=== PATIENT | male | born 1950 | race Caucasian/White ===

== ENCOUNTER 2017-10-12 21:03 | Emergency (ER) | payer OTHER ==
[~2017-10-12 21:03] MED LIST: FLOMAX0.4 M1 PO; GLUCOSAMINE &1 EAC1; VERAPAMIL ER240 MG PO
[2017-10-12] MEDS ORDERED: SAW PALMETTO450 M1 PO (21:36)
[2017-10-12] MEDS ORDERED: RHODIOLA PO (21:38)
--- NOTE | 2017-10-12 22:15 | ED GI/GU/ABDOMINAL COMPLAINT ---
History of Present Illness General Chief Complaint: General Adult Stated Complaint: "URINARY RETENTION?" Source: patient, old records Exam Limitations: no limitations Vital Signs & Intake/Output Vital Signs & Intake/Output Vital Signs Date Time Temp Pulse Resp B/P B/P Pulse O2 O2 Flow FiO2 Mean Ox Delivery Rate 10/12 2246 98.3 71 16 119/58 96 Room Air 10/12 2151 Room Air 10/122 97.7 88 28 166/92 Allergies Coded Allergies: No Known Allergies (10/12/17) Reconcile Medications Gluc 2KCL/Chondr/Barb Hy/Hy AC (Glucosamine & Chondroitin Cap) 375 MG-300 MG-175 MG-2 MG CAPSULE JOINT HEALTH (Reported) [RHODIOLA] 2 CAP PO QAM SUPPLEMENT (Reported) Saw [address] Fruit (Saw [address]) 450 MG CAPSULE 1 CAP PO TID SUPPLEMENT ( Reported) Tamsulosin HCl (Flomax) 0.4 MG CAP.ER.24H 1 CAP PO DAILY BLADDER HEALTH ( Reported) Verapamil HCl (Verapamil ER) 240 MG CAP24H.PEL 1 CAP PO DAILY HIGH BLOOD PRESSURE (Reported) Triage Note: PER PT URINARY RETENTION HAD CATHETER LAST WEEK AND DR KAUR REMOVED CATHETER DID GREAT UNTIL TODAY UNABLE TO VOID X 2 HRS PACING IN TRIAGE Triage Nurses Notes Reviewed? yes Onset: Abrupt Duration: hour(s): (2-3), constant, continues in ED Timing: recent history Quality/Severity: fullness Severity Numbers: 8 Location: suprapubic Radiation: no radiation Activities at Onset: none Prior Abdominal Problems: similar symptoms Past Sexual History: Unobtainable at this time No Modifying Factors: none Modifying Factors: Worsens With: urinating. HPI: 66 year old male hx of bph presents for eval of urinary retention. Patient reports that symptoms started about 2 or 3 hours before presentation with an inability to urinate. He states that earlier today he was urinating without difficulty. Symptoms started suddenly. He had similar symptoms that occurred 1 week ago. He was seen here a Mcgee was placed and it was removed by Dr. Kaur on Sunday of this week. He was doing well until today. No chest pain shortness of breath or fevers. No back pain or abdominal pain. He does report an urge to urinate and severe fullness. (Moises Balderas) Past History Travel History Traveled to [place] past 21 day No Medical History Any Pertinent Medical History? see below for history Neurological: NONE EENT: NONE Cardiovascular: NONE Respiratory: NONE Gastrointestinal: NONE Hepatic: NONE Renal: bph Musculoskeletal: NONE Psychiatric: NONE Endocrine: NONE Blood Disorders: NONE Cancer(s): NONE Surgical History Surgical History: none Psychosocial History What is your primary language Uzbek Tobacco Use: Never used Family History Hx Contributory? No (Moises Balderas) Review of Systems Review of Systems Constitutional: Reports: no symptoms. EENTM: Reports: no symptoms. Respiratory: Reports: no symptoms. Cardiovascular: Reports: no symptoms. GI: Reports: no symptoms. Genitourinary: Reports: see HPI (retention ). Musculoskeletal: Reports: no symptoms. Skin: Reports: no symptoms. Neurological/Psychological: Reports: no symptoms. Hematologic/Endocrine: Reports: no symptoms. Immunologic/Allergic: Reports: no symptoms. All Other Systems: Reviewed and Negative (Moises Balderas) Physical Exam Physical Exam General Appearance: well developed/nourished, no apparent distress, alert, awake Head: atraumatic, normal appearance Eyes: Bilateral: normal appearance, PERRL, EOMI. Ears, Nose, Throat, Mouth: hearing grossly normal, moist mucous membrane Neck: normal inspection, supple, full range of motion Respiratory: normal breath sounds, chest non-tender, no respiratory distress, lungs clear Cardiovascular: regular rate/rhythm Gastrointestinal: normal bowel sounds, soft, non-tender, no organomegaly Back: normal inspection, normal range of motion Extremities: normal range of motion Neurologic/Psych: no motor/sensory deficits, awake, alert, oriented x 3, normal gait Skin: intact, normal color, warm/dry Core Measures ACS in differential dx? No Sepsis Present: No Sepsis Focused Exam Completed? No (Moises Balderas) Progress Differential Diagnosis: pyelonephritis, ureterolithiasis, urinary retention, urethritis, UTI/pyelo Plan of Care: Orders Procedure Date/time Status URINALYSIS 10/12 2129 Complete Mcgee, Insertion/Removal/Asses 10/12 2108 Active CULTURE,URINE 10/12 2108 Active Laboratory Tests 10/12/172129: Urine Color YEL, Urine Clarity CLEAR, Urine pH 6.0, Ur Specific Wesley <= 1.005 , Urine Protein NEG, Urine Ketones NEG, Urine Nitrite NEG, Urine Bilirubin NEG, Urine Urobilinogen 0.2, Ur Leukocyte Esterase NEG, Ur Microscopic SEDIMENT EXAMINED, Urine RBC RARE, Urine Bacteria MOD H, Urine Hemoglobin LARGE H, Urine Glucose NEG 10/12/172108: Urine Color Cancelled, Urine Clarity Cancelled, Urine pH Cancelled, Ur Specific Wesley Cancelled, Urine Protein Cancelled, Urine Ketones Cancelled, Urine Nitrite Cancelled, Urine Bilirubin Cancelled, Urine Urobilinogen Cancelled, Ur Leukocyte Esterase Cancelled, Ur Microscopic Cancelled, Urine Hemoglobin Cancelled, Urine Glucose Cancelled Microbiology 10/12 2129 URINE ROUT: Urine Culture - RECD Patient was bladder scanned on arrival and his bladder had more than 1000 mL. A Mcgee was placed that drained out over a liter. Patient reports feeling much better. Urine is not showing any signs of infection. Since symptoms only started 2 or 3 hours ago very low suspicion for nephropathy. Patient will be discharged with a Mcgee in place with instructions to follow-up with his urologist on Sunday. Patient hard he has an appointment scheduled for Sunday. Discussed return precautions in detail. Patient is nontoxic-appearing and agrees with the plan. Initial ED EKG: none (Moises Balderas) Departure Departure Disposition: HOME OR SELF CARE Condition: Stable Clinical Impression Primary Impression: Urine retention Referrals: Vincent TAVAREZ,Andrew Nava MD,Derik Taylor (PCP/Family) Additional Instructions: Follow-up with ear urologist on Sunday as scheduled. Monitor your symptoms return with any concerns. Departure Forms: Customer Survey General Discharge Information (Moises Balderas) PA/AIRCRAFT SERVICER Co-Sign Statement Statement: ED Attending supervision documentation- [x] I saw and evaluated the patient. I have also reviewed all the pertinent lab results and diagnostic results. I agree with the findings and the plan of care as documented in the PA's/AIRCRAFT SERVICER's documentation. pt well appearing in ED... had his mcgee removed earlier this week...now represents with same... drained 1 liter of clear urine. pt safe for discharge, with close follwo up advised. [] I have reviewed the ED Record and agree with the PA's/AIRCRAFT SERVICER's documentation. [] Additions or exceptions (if any) to the PAs/AIRCRAFT SERVICER's note and plan are summarized below: [] (Kam TAVAREZ,Ronnie Shi)
[2017-10-12 22:46] VITALS: BP 119/58
== END 2017-10-12 22:44 ==
LOC: ERH 21:03
DX: N40.1 Benign prostatic hyperplasia with lower urinary tract symptoms (principal); R33.9 Retention of urine, unspecified
CPT/HCPCS: 81001; 87086

== ENCOUNTER 2017-11-08 04:38 | Inpatient (IN) | payer OTHER ==
[~2017-11-08] VITALS: Ht 172.7 cm; Wt 87.1 kg
[~2017-11-08 04:38] MED LIST changes: +BACTRIM DS TAB1 EACH PO; -GLUCOSAMINE &1 EAC1; +GLUCOSAMINE &1 EAC1 PO; +RHODIOLA PO; +SAW PALMETTO450 M1 PO
--- NOTE | 2017-11-08 10:57 | History & Physical ---
Trung Lunsford 11/08/17 1053: General Information and HPI MD Statement: I have seen and personally examined DERIK TELLO and documented this H&P. The patient is a 66 year old M who developed post procedural atrial fibrillation. Source of Information: patient, PACU records Exam Limitations: no limitations History of Present Illness: Mr. Tello is a 66-year-old gentleman with past medical history of hypertension, history of SVTs in his 30s, BPH who presented to [facility] for a urolift procedure for his long-standing BPH. Patient had a successful procedure but during the procedure developed atrial fibrillation. Patient carries no history of atrial fibrillation. Patient did have episodes of SVTs in his 30s which were initially managed by beta-blockade. The beta blockers were stopped at some point of time due to decreased frequency of symptoms per the patient. To be noted, patient is on verapamil for the management of his hypertension-as stated by the patient. During the interview, patient denies any chest pain, palpitations or any difficulty breathing. He did note "heartburn" earlier which he described as discomfort in the epigastric/substernal region, nonradiating, which he states is much improved now. He did have some recent upper respiratory symptoms/sore throat which have now resolved. He denies any lightheadedness or dizziness. No history of thyroid disease. Nonsmoker, no alcohol use and no drug use. Strong family history of SVT with A. fib and mitral valve repair ( father). Other systems reviewed and negative, exceptions above. Allergies/Medications Allergies: Coded Allergies: No Known Allergies (11/06/17) Home Med list Gluc 2KCL/Chondr/Barb Hy/Hy AC (Glucosamine & Chondroitin Cap) (Unknown Strength ) CAPSULE 1 CAP PO DAILY SUPPLEMENT (Reported) [RHODIOLA] 2 CAP PO QAM SUPPLEMENT (Reported) Saw [place] Fruit (Saw [place]) 450 MG CAPSULE 1 CAP PO TID SUPPLEMENT ( Reported) Sulfamethoxazole/Trimethoprim (Bactrim Ds Tablet) 800 MG-160 MG TABLET 1 TAB PO BID URINE Tamsulosin HCl (Flomax) 0.4 MG CAP.ER.24H 1 CAP PO DAILY BLADDER HEALTH ( Reported) Verapamil HCl (Verapamil ER) 240 MG CAP24H.PEL 1 CAP PO DAILY HIGH BLOOD PRESSURE (Reported) Past History Medical History Neurological: NONE EENT: NONE Cardiovascular: hypertension Respiratory: NONE Gastrointestinal: NONE Hepatic: NONE Renal: bph Musculoskeletal: NONE Psychiatric: NONE Endocrine: NONE Blood Disorders: NONE Cancer(s): NONE Surgical History Surgical History: none Past Family/Social History Family History Relations & Conditions if any FATHER FH: atrial fibrillation FHx: SVT (supraventricular tachycardia) Review of Systems Review of Systems Constitutional: Reports: see HPI. Exam & Diagnostic Data Last 24 Hrs of Vital Signs/I&O Vital Signs Date Time Temp Pulse Resp B/P B/P Pulse O2 O2 Flow FiO2 Mean Ox Delivery Rate 11/08 1136 98.0 108 18 122/78 98 Room Air Intake & Output 11/08 1600 11/08 0800 02 0000 Intake Total Output Total Balance Patient 192 lb Weight Weight Standing Scale Measurement Method Physical Exam General Appearance Alert, Oriented X3, Cooperative HEENT Atraumatic, PERRLA, EOMI, mucous membranes dry. Neck Supple, No JVD, No thryomegaly, +2 Carotid Pulse wo Bruit, No LAD Cardiovascular Normal S1, Normal S2, irregularly irregular Lungs Clear to Auscultation, Normal Air Movement Abdomen Normal Bowel Sounds, Soft, No Tenderness Neurological Normal Gait, Normal Speech Extremities No Clubbing, No Cyanosis, trace edema bilateral. Last 24 Hrs of Labs/Fish: Laboratory Tests 11/08/17 1050: Troponin I Cancelled Diagnostic Data EKG Results Atrial fibrillation, rate 102. Right bundle branch block. No previous tracing available to compare. Assessment/Plan Assessment: 66-year-old gentleman with long-standing history of paroxysmal SVT, hypertension on verapamil with new onset atrial fibrillation post urologic procedure for BPH. Patient to be monitored in telemetry for new-onset A. fib. Currently rate controlled , Will restart home dose of verapamil. Echocardiogram. Serial troponins and EKGs to rule out ischemic event. Ordered CBC, BEP and TSH are. May need electrical cardioversion if no spontaneous reversal to sinus rhythm. Will begin IV heparin per protocol. Cleared by surgery. BPH status post UROLIFT implant placement. Restart Proscar 5 mg daily x 30 days. Irrigate Fragoso q2-4hrs with 50 cc sterile water PRN hematuria/clot. Full code. Heart healthy diet. IV heparin-antibiotic ventilation and DVT prophylaxis. As Ranked By This Provider Problem List: 1. New onset atrial fibrillation Core Measures/Misc (06/17) Acute Coronary Syndrome ACS Diagnosis: No Congestive Heart Failure Congestive Heart Failure Diagnosis No Cerebrovascular Accident CVA/TIA Diagnosis: No VTE (View Protocol) VTE Risk Factors Age>40 No Mechanical VTE Prophylaxis d/t N/A MechProphylax Ordered No VTE Pharm Prophylaxis d/t NA PharmProphylax ordered Sepsis (View protocol) Sepsis Present: No Derik Riojas MD 11/08/17 1131: Attending MD Review Statement Attending Statement Attending MD Statement: examined this patient, discuss w/resident/PA/OCCUPATIONAL THERAPY SUPERVISOR, agreed w/resident/PA/OCCUPATIONAL THERAPY SUPERVISOR, discussed with family, reviewed EMR data (avail), discussed with nursing, reviewed images, amended to note Attending Assessment/Plan: The patient is a 66-year-old male with history of hypertension, and remote history of paroxysmal SVT. He was previously treated with beta abram for the SVT. He has recently been on verapamil, and he has not had any recent recurrences of the SVT. He underwent a your left procedure today for BPH, and he was noted to develop atrial fibrillation, which is a new finding for him. He is not aware of any prior history of atrial fibrillation. He noted recent mild epigastric discomfort which he describes as a strange feeling with no radiation, which resolved after a few minutes. No palpitations. No syncope. No lightheadedness or dizziness. No nausea or vomiting. He notes that he did not take his verapamil prior to the procedure. Review of systems: No fever. No chills. No rash. No tremor. No melena. All other systems were reviewed, and were noted to be negative. Physical examination: Gen: The patient is in no acute distress HEENT: Normal nose, ears, and oropharynx. Pupils equal bilaterally. Conjunctiva normal. Neck: Supple with no JVD, no masses, and no thyromegaly Lungs: Clear to auscultation with normal respiratory effort Heart: Irregularly irregular, S1, S2, no murmurs. No peripheral edema, 2+ pulses in the lower extremities bilaterally Abdomen: Soft, nontender, no masses. No hepatomegaly. No splenomegaly Extremities: No clubbing or cyanosis. Normal muscle strength in the upper and lower extremities Skin: Normal skin turgor with no skin ulcers or lesions noted. Neuro: Cranial nerves intact. Sensation intact Psych: Alert and oriented - 3 with appropriate affect EKG tracings independently reviewed, and reveals atrial fibrillation with ventricular response of 102, right bundle branch block Assessment: 1. Prior history of atrial fibrillation with no recent recurrence 2. Hypertension 3. New onset atrial fibrillation status post surgery Recommendations: * Restart his usual dose of verapamil 240 mg daily for control of ventricular rate and hypertension * If he has significant elevation of ventricular rate, then 1 or more individual doses of IV metoprolol could be given * Monitor on telemetry * Echocardiogram * Check serial troponin * Check basic metabolic profile, CBC, magnesium, and TSH * Start IV heparin per protocol if cleared by surgery. This will be changed to Eliquis or other oral anticoagulant prior to discharge * Will consider possible cardioversion, either as an inpatient or as an outpatient if he does not spontaneously return to sinus rhythm
--- NOTE | 2017-11-08 11:22 | Operative Report ---
Operative/Inv Procedure Report Surgery Date: 11/08/17 Name of Procedure: Cystoscopy. UROLIFT implant placement (X6) Pre-Operative Diagnosis: BPH. Urinary retention. Post-Operative Diagnosis: Same Estimated Blood Loss: scant Surgeon/Dispatch Manager: Andrew Kaur MD Anesthesia: laryngeal mask airway Drains: 20 [place] Fragoso catheter. Specimens: None Complications: None Operative/Procedure Note Note: The patient was taken to the operating room and placed on the OR table in supine position. Timeout was performed, with the patient awake, in order to confirm correct identity, procedure, antibiotics, anesthesia, and other pertinent perioperative information. After adequate anesthesia and antibiotics, the patient was then placed lithotomy stirrups, draped and prepped in the usual surgical fashion, after removing the indwelling Fragoso catheter. A 20 [place] cystoscope was inserted into the bladder without significant difficulty, noting the bilateral obstructing lobes of the prostate, with small middle lobe. The cystoscope bridge was replaced with ureter left the U device. The first treatment site was the patient's left side approximately 1.5 cm distal to the bladder neck. The distal tip of the delivery device was then angled laterally, approximately 20 at this position to compress the lateral lobe. The trigger was pulled, thereby deploying a needle containing the implant through the prostate. The needle was then retracted, allowing one end of the implant to be delivered to the capsule surface of the prostate. The implant was then tensioned to assure capsular sealing and removal of slack monofilament. The device was then angled back toward midline and slowly advanced proximally until cystoscopic verification of the monofilament being centered in the delivery bay. The urethral end piece was then affixed to the monofilament, thereby tailoring the size of the implant. Excess filament was then severed. The delivery device was then readvanced into the bladder. The delivery device was then replaced with cystoscope, and bridge, and implant location and opening effect was confirmed cystoscopically. The same procedure was then repeated on the right side, just distal to the right bladder neck. And 2 additional implants were delivered just proximal to the vera montanum, again one on the right, and one in the left side of the prostate following the similar technique. Cystoscopy then revealed a persistent area of obstruction, and 2 more implants were delivered in the mid prostate;(one on the right lateral lobe, and 1 on the left lateral robe) . A total of 6 implants were placed in the patient's prostate in order to perform an open prostate channel. A final cystoscopy was conducted to inspect the location, and stability of each implant, and second to confirm the presence of a continuous anterior channel present through the prostatic urethra with irrigation flow turned off. The bladder was then filled with 150 mL of irrigation fluid, and the cystoscope was removed. A 20 [place] Fragoso was inserted without difficulty, draining clear fluid. patient tolerated procedure well All sponge needle and instrument count were correct at the end of the case. The patient tolerated the procedure well, and taken to the recovery room in satisfactory condition. Findings: Patient with intraoperative rapid atrial fibrillation. EKG obtained in the recovery room, and cardiology contacted for evaluation. Discharge Disposition: PACU Additional Comments: Patient to remain on antibiotics, pain medication, and anticoagulation as per cardiology. CC: Andrew Kaur MD
[2017-11-08 11:36] VITALS: BP 122/78
[2017-11-08 13:17] LABS: ABSOLUTE BASOPHIL COUNT 0 /CUMM (0.0-0.2); ABSOLUTE EOSINOPHIL COUNT 0.1 /CUMM (0.0-0.7); ABSOLUTE GRANULOCYTE CT 8.3 /CUMM (1.4-6.5); ABSOLUTE LYMPH COUNT 1.6 /CUMM (1.2-3.4); ABSOLUTE MONOCYTE COUNT 0.6 /CUMM (0.10-0.60); BASOPHIL % 0.4 % (0.0-2.0); EOSINOPHIL % 1.4 % (0-5); GRANULOCYTE % 77.6 % (42.2-75.2); HEMATOCRIT 42.2 % (42-52); MEAN CORPUSCULAR HGB 27.3 PG (27.0-31.0); MEAN CORPUSCULAR HGB CONC 32.4 G/DL (33.0-37.0); MEAN CORPUSCULAR VOLUME 84.2 FL (80.0-94.0); MEAN PLATELET VOLUME 7.1 FL (7.4-10.4); PLATELET COUNT 343 /CUMM (130-400); RBC DISTRIBUTION WIDTH 13.3 % (11.5-14.5); RED BLOOD CELL CT 5.01 /CUMM (4.70-6.10); WHITE BLOOD CELL COUNT 10.8 /CUMM (4.8-10.8)
[2017-11-08 14:39] VITALS: BP 120/70
[2017-11-08 19:24] LABS: PTT 49 SEC (25-37)
[2017-11-08 22:14] VITALS: BP 124/70
[2017-11-09 02:59] LABS: PTT 80 SEC (25-37)
[2017-11-09 05:59] VITALS: BP 152/82
--- NOTE | 2017-11-09 07:30 | PN- Housestaff ---
Subjective Follow-up For: Intraoperative atrial fibrillation BPH status post cystoscopy and urolift implant placement Tele-Events Since Last Visit: Sinus bradycardia to Normal sinus rhythm with heart rate between 47 and 65 Subjective: Patient was seen and examined today. Patient denies any surgical pain at this time. Complains of increased bladder spasms and the feeling the constant urge to urinate. Patient denies any fever, chills, shortness breath, chest pain, nausea/vomiting, constipation/diarrhea. The patient's mcgee is in place and has blood-tinged urine. He. No acute events overnight. Review of Systems Constitutional: Reports: no symptoms. Cardiovascular: Reports: no symptoms. Respiratory: Reports: no symptoms. Gastrointestinal: Reports: no symptoms. Genitourinary: Reports: see HPI, hematuria, urgency. Musculoskeletal: Reports: no symptoms. Neurological/Psychological: Reports: see HPI. Objective Last 24 Hrs of Vital Signs/I&O Vital Signs Date Time Temp Pulse Resp B/P B/P Pulse O2 O2 Flow FiO2 Mean Ox Delivery Rate 11/09 0759 72 152/82 11/09 0559 98.7 55 20 152/82 92 11/08 2214 99.1 64 18 124/70 90 11/08 2138 99.1 11/08 1439 98.8 71 20 120/70 96 Room Air Intake & Output 11/09 1600 11/09 0800 11/09 0000 Intake Total 188.2 200 Output Total 1600 900 Balance -1411.8 -700 Intake, IV 88.2 Intake, Oral 100 200 Output, Urine 1600 900 Physical Exam General Appearance: Alert, Oriented X3, Cooperative, No Acute Distress Skin: No Rashes, No Breakdown, No Significant Lesion HEENT: Atraumatic, PERRLA, EOMI, Mucous Membr. moist/pink Cardiovascular: Regular Rate, Normal S1, Normal S2, No Murmurs Lungs: Clear to Auscultation, Normal Air Movement Abdomen: Normal Bowel Sounds, Soft, No Tenderness Extremities: No Clubbing, No Cyanosis, No Edema, Normal Pulses, No Tenderness/ Swelling Vascular: Normal Pulses, Pulses Symmetrical Other Physical Findings: Mcgee in place with gross hematuria in Mcgee bag. Current Medications: Current Medications Sig/Aisha Start time Last Medication Dose Route Stop Time Status Admin Acetaminophen 650 MG Q6P PRN 11/08 1045 DCD 11/08 PO 2138 Ciprofloxacin 500 MG ONCE ONE 11/09 1200 DC 11/09 PO 11/09 1201 1228 Ciprofloxacin 500 MG ONCE 11/08 0000 DC PO 11/08 2359 Finasteride 5 MG DAILY 11/08 1109 DCD 11/09 PO 0759 Heparin Sodium 3,500 UNIT ONCE ONE 11/09 0600 DC 11/08 (Porcine) IV 11/09 0601 2000 Heparin Sodium 5,000 UNIT .STK-MED ONE 11/08 1954 DC (Porcine) IV 11/08 195 Heparin Sodium/ 25,000 UNIT Q24H 11/08 1200 DC 11/09 Dextrose IV 0650 Dextrose/Water 500 ML Ibuprofen 600 MG Q6P PRN 11/08 1045 DCD PO Tamsulosin HCl 0.4 MG DAILY 11/09 1030 DCD PO Verapamil HCl 240 MG DAILY 11/08 1147 DCD 11/09 PO 0759 Last 24 Hrs of Lab/Fish Results Last 24 Hrs of Labs/Mics: Laboratory Tests 11/09/17 0715: Anion Gap 10, Estimated GFR > 60, BUN/Creatinine Ratio 20.0, CBC w Diff NO MAN DIFF REQ, RBC 4.98, MCV 83.6, MCH 27.2, MCHC 32.6 L, RDW 13.4, MPV 7.1 L, Gran % 71.0, Lymphocytes % 19.3 L, Monocytes % 6.6, Eosinophils % 2.6, Basophils % 0.5, Absolute Granulocytes 7.3 H, Absolute Lymphocytes 2.0, Absolute Monocytes 0.7 H, Absolute Eosinophils 0.3, Absolute Basophils 0 11/09/17 0150: Troponin I < 0.01, APTT 80 H 11/08/17 1758: Troponin I < 0.01, APTT 49 H Orders ECHO Findings: CONCLUSIONS 1. minimal to mild aortic sclerosis is present. The valve is trileaflet. There is no valvular stenosis or insufficiency. 2. Mitral leaflet thickening is present with minimal mitral insufficiency and mild left atrial enlargement. 3. There is no significant pericardial fluid present. 4. The left ventricular chamber size and systolic function are normal with no resting wall motion abnormalities. 5. Minimal tricuspid and pulmonic insufficiency are present. There is no evidence of pulmonary hypertension. 6. No prior study was available for comparison. Lines/Diet/Fluids Catheters/Tubes: mcgee Mcgee Still Needed? Yes Assessment/Plan Assessment: Patient is a 66-year-old male with past medical history of SVTs in his 30s, hypertension, BPH who initially presented to [facility] for uro-lift procedure. During the procedure patient was noted to have atrial fibrillation. EKG showed atrial fibrillation with ventricular rate of 102 and right bundle branch block Patient was admitted to the telemetry floor and placed on IV heparin and his verapamil 240 mg (home medication for hypertension) was resumed for rate control. After being transferred patient spontaneously converted back into normal sinus rhythm and has remained in normal sinus rhythm overnight. Patient's troponins remained negative. Patient continued to have gross hematuria overnight. 1. New onset atrial fibrillation - Patient converted back to NSR. Patient initially on IV heparin however discontinued at the discretion of patient's urologist and metrology engineer as patient continued to have gross hematuria. -TSH within normal limits -H&H stable - Patient's ECHO showed normal left ventricular ejection fraction estimated at 60-65%. -Per cardiology patient will require anticoagulation with Eliquis 5 mg twice daily however this will be started after the patient has seen Dr. Kaur on 11/12. -Patient is to follow-up with cardiology within 1 week of discharge 2. BPH status post cystoscopy and uro-lift procedure on 11/08/2017, postop day #1 -Patient has a Mcgee in place which is currently draining gross hematuria -Continue irrigating q2 to q4 hours -Continue finasteride daily -Flomax given today for increased bladder spasms. Patient can continue his Flomax at home. -Patient started on antibiotics, ciprofloxacin 500 mg daily for 10 days -Patient is to follow-up with Dr. Kaur on 11/12/[address] post discharge. DVT prophylaxis: IV heparin, ALPs Diet: Heart healthy Code: Full code Problem List: 1. New onset atrial fibrillation 2. Gross hematuria 3. BPH (benign prostatic hyperplasia) Pain Ratin Pain Location: surgical site Pain Goal: Remain pain free Pain Plan: tylenol PRN Tomorrow's Labs & Rationales: none - discharge home today
--- NOTE | 2017-11-09 07:38 | ECHOCARDIOGRAM REPORT ---
NATHANIEL TELLO Age: 66 : 1950 Gender: M Exam Date: 11/08/2017 16:45 Exam Location: 1 [address] Ht (in): 68 Wt (lb): 192 BSA: 2.07 BP: 129 / 79 Ordering Physician: Trung Lunsford MD Referring Physician: Juanpablo Wright MD Technologist: Zoie Oliva [facility] Room Number: [id number] Indications: AFIB/FLUTTER Rhythm: Sinus Technical Quality: Fair FINDINGS Left Ventricle Normal size left ventricle. No obvious regional wall motion abnormalities. Normal left ventricular ejection fraction estimated at 60-65%. Right Ventricle Normal right ventricular size and function. Right Atrium Normal right atrial size. Left Atrium Mild left atrial dilatation. Mitral Valve Mitral valve thickened. Trace mitral regurgitation. Aortic Valve Trileaflet aortic valve. Focal thickening of the aortic valve cusps. No aortic stenosis. No aortic regurgitation. Tricuspid Valve Tricuspid valve not well visualized, grossly normal. Trace tricuspid regurgitation. Right ventricular systolic pressure estimated at 24 mmHg. Pulmonic Valve Structurally normal pulmonic valve. Trace pulmonic regurgitation. Pericardium No pericardial effusion. Great Vessels Normal size aortic root and proximal ascending aorta. CONCLUSIONS 1. minimal to mild aortic sclerosis is present. The valve is trileaflet. There is no valvular stenosis or insufficiency. 2. Mitral leaflet thickening is present with minimal mitral insufficiency and mild left atrial enlargement. 3. There is no significant pericardial fluid present. 4. The left ventricular chamber size and systolic function are normal with no resting wall motion abnormalities. 5. Minimal tricuspid and pulmonic insufficiency are present. There is no evidence of pulmonary hypertension. 6. No prior study was available for comparison. Juanpablo Wright M.D. (Electronically Signed) Final Date: 09 November 2017 07:37 MEASUREMENTS (Male / Female) Normal Values 2D ECHO LV Diastolic Diameter PLAX 4.8 cm 4.2 - 5.9 / 3.9 - 5.3 cm LV Systolic Diameter PLAX 3.1 cm 2.1 - 4.0 cm LV Fractional Shortening PLAX 35.4 % 25 - 46 % LV Ejection Fraction 2D Teich 64.7 % IVS Diastolic Thickness 1.0 cm LVPW Diastolic Thickness 1.1 cm LV Relative Wall Thickness 0.4 RV Internal Dim ED PLAX 2.7 cm 1.9 - 3.8 cm LVOT Diameter 2.3 cm Aortic Root Diameter 3.4 cm LA Systolic Diameter LX 4.3 cm 3.0 - 4.0 / 2.7 - 3.8 cm LA Volume 46.0 cm 18 - 58 / 22 - 52 cm Ascending Aorta Diameter 3.2 cm DOPPLER AV Peak Velocity 119.0 cm/s AV Peak Gradient 5.7 mmHg AV Mean Velocity 87.5 cm/s AV Mean Gradient 3.0 mmHg AV Velocity Time Integral 28.6 cm LVOT Peak Velocity 102.0 cm/s LVOT Peak Gradient 4.2 mmHg LVOT Mean Velocity 67.0 cm/s LVOT Mean Gradient 2.0 mmHg LVOT Velocity Time Integral 21.0 cm LVOT Stroke Volume 87.2 cm AV Area Cont Eq vti 3.1 cm AV Area Cont Eq pk 3.6 cm MV Peak Velocity 81.3 cm/s MV Peak Gradient 2.6 mmHg MV Mean Velocity 47.2 cm/s MV Mean Gradient 1.0 mmHg Mitral E Point Velocity 47.9 cm/s Mitral A Point Velocity 48.4 cm/s Mitral E to A Ratio 1.0 MV PHT Velocity 65.2 cm/s MV Deceleration Carter 155.0 cm/s MV Pressure Half Time 126.2 ms MV Area PHT 1.7 cm MV Deceleration Time 370.0 ms TR Peak Velocity 215.0 cm/s TR Peak Gradient 18.5 mmHg Right Atrial Pressure 5.0 mmHg Pulmonary Artery Systolic Pressu 23.5 mmHg Right Ventricular Systolic Press 23.5 mmHg PV Peak Velocity 130.0 cm/s PV Peak Gradient 6.8 mmHg PV Mean Velocity 78.1 cm/s PV Mean Gradient 3.0 mmHg PV Velocity Time Integral 25.4 cm LV E' Lateral Velocity 10.3 cm/s Mitral E to LV E' Lateral Ratio 4.7 LV E' Septal Velocity 6.9 cm/s Mitral E to LV E' Septal Ratio 6.9
[2017-11-09 07:59] VITALS: BP 152/82
[2017-11-09 08:11] LABS: ABSOLUTE BASOPHIL COUNT 0 /CUMM (0.0-0.2); ABSOLUTE EOSINOPHIL COUNT 0.3 /CUMM (0.0-0.7); ABSOLUTE GRANULOCYTE CT 7.3 /CUMM (1.4-6.5); ABSOLUTE MONOCYTE COUNT 0.7 /CUMM (0.10-0.60); BASOPHIL % 0.5 % (0.0-2.0); EOSINOPHIL % 2.6 % (0-5); HEMATOCRIT 41.6 % (42-52); MEAN CORPUSCULAR HGB 27.2 PG (27.0-31.0); MEAN CORPUSCULAR HGB CONC 32.6 G/DL (33.0-37.0); MEAN CORPUSCULAR VOLUME 83.6 FL (80.0-94.0); MEAN PLATELET VOLUME 7.1 FL (7.4-10.4); PLATELET COUNT 330 /CUMM (130-400); RBC DISTRIBUTION WIDTH 13.4 % (11.5-14.5); RED BLOOD CELL CT 4.98 /CUMM (4.70-6.10); WHITE BLOOD CELL COUNT 10.3 /CUMM (4.8-10.8)
--- NOTE | 2017-11-09 08:18 | PN- Cardiology ---
Subjective Subjective: Feeling well. No chest pain. No palpitations. No diaphoresis. He is having gross hematuria. He converted to sinus rhythm and was in sinus rhythm overnight without significant arrhythmias. Objective Vital Signs and I&Os Vital Signs Date Time Temp Pulse Resp B/P B/P Pulse O2 O2 Flow FiO2 Mean Ox Delivery Rate 11/099 72 152/82 11/09 0559 98.7 55 20 152/82 92 11/08 2214 99.1 64 18 124/70 90 11/08 2138 99.1 11/08 1439 98.8 71 20 120/70 96 Room Air 11/08 1258 108 122/78 11/08 1136 98.0 108 18 122/78 98 Room Air Intake & Output 11/09 1600 11/09 0811/09 0000 11/08 1600 11/08 0000 Intake Total 188.2 200 556 Output Total 1600 900 250 Balance -1411.8 -700 306 Intake, IV 88.2 56 Intake, Oral 100 200 500 Output, Urine 1600 900 250 Patient 192 lb Weight Weight Standing Scale Measurement Method Physical Exam: Gen: The patient is in no acute distress HEENT: Normal nose, ears, and oropharynx. Pupils equal bilaterally. Conjunctiva normal. Neck: Supple with no JVD, no masses, and no thyromegaly Lungs: Clear to auscultation with normal respiratory effort Heart: Irregularly irregular, S1, S2, no murmurs. No peripheral edema, 2+ pulses in the lower extremities bilaterally Abdomen: Soft, nontender, no masses. No hepatomegaly. No splenomegaly Extremities: No clubbing or cyanosis. Normal muscle strength in the upper and lower extremities Skin: Normal skin turgor with no skin ulcers or lesions noted. Neuro: Cranial nerves intact. Sensation intact Current Medications: Current Medications Sig/Aisha Start time Last Medication Dose Route Stop Time Status Admin Acetaminophen 650 MG Q6P PRN 11/08 1045 AC 11/08 PO 2138 Ciprofloxacin 500 MG ONCE 11/08 0000 DC PO 11/08 2359 Enoxaparin Sodium 40 MG DAILY 11/09 1000 CAN SC Finasteride 5 MG DAILY 11/08 1109 AC 11/09 PO 0759 Heparin Sodium 3,500 UNIT ONCE ONE 11/09 599 DC 11/08 (Porcine) IV 11/09 Heparin Sodium 5,000 UNIT .STK-MED ONE 11/08 1954 DC (Porcine) IV 11/08 1955 Heparin Sodium/ 25,000 UNIT Q24H 11/08 1200 AC 11/09 Dextrose IV 0650 Dextrose/Water 500 ML Hydromorphone HCl 2 MG .STK-MED ONE 11/08 0845 DC IM 11/08 0846 Ibuprofen 600 MG Q6P PRN 11/08 1045 AC PO Verapamil HCl 240 MG DAILY 11/08 1147 AC 11/09 PO 0759 Results Last 48 Hrs of Labs/Mics: Laboratory Tests 11/09/17 0715: Sodium Pending, Potassium Pending, Chloride Pending, Carbon Dioxide Pending, Anion Gap Pending, BUN Pending, Creatinine Pending, BUN/Creatinine Ratio Pending , CBC w Diff Pending, WBC Pending, RBC Pending, Hgb Pending, Hct Pending, MCV Pending, MCH Pending, MCHC Pending, RDW Pending, Plt Count Pending, MPV Pending 11/09/17 0150: Troponin I < 0.01, APTT 80 H 11/08/17 1758: Troponin I < 0.01, APTT 49 H 11/08/17 1205: Magnesium Cancelled 11/08/17 1205: Anion Gap 11, Estimated GFR > 60, BUN/Creatinine Ratio 20.0, Magnesium 1.7, Troponin I < 0.01, TSH 2.270, CBC w Diff NO MAN DIFF REQ, RBC 5.01, MCV 84.2, MCH 27.3, MCHC 32.4 L, RDW 13.3, MPV 7.1 L, Gran % 77.6 H, Lymphocytes % 14.6 L, Monocytes % 6.0, Eosinophils % 1.4, Basophils % 0.4, Absolute Granulocytes 8.3 H, Absolute Lymphocytes 1.6, Absolute Monocytes 0.6, Absolute Eosinophils 0.1, Absolute Basophils 0 11/08/17 1050: Troponin I Cancelled Recent Imaging Studies: Echocardiogram 11/09/17: 1. minimal to mild aortic sclerosis is present. The valve is trileaflet. There is no valvular stenosis or insufficiency. 2. Mitral leaflet thickening is present with minimal mitral insufficiency and mild left atrial enlargement. 3. There is no significant pericardial fluid present. 4. The left ventricular chamber size and systolic function are normal with no resting wall motion abnormalities. 5. Minimal tricuspid and pulmonic insufficiency are present. There is no evidence of pulmonary hypertension. 6. No prior study was available for comparison. Assessment/Plan Assessment/Plan Assessment: 1. Hypertension 2. History of paroxysmal SVT 3. Status post uro-lift procedure with postoperative hematuria 4. Paroxysmal atrial fibrillation, converted to sinus rhythm Plan: * Discharge to home today if cleared by urology * Long-term anticoagulation is indicated for stroke prevention given evidence of paroxysmal atrial fibrillation, however given gross hematuria, anticoagulation can be temporarily held. I discussed with Dr. Kaur, and he recommends holding anticoagulation for 3 days per * Discontinue IV heparin * Start Eliquis 5 mg p.o. twice daily in 3 days. * Follow up in 1 week * Please discharge patient with card for initial 30 days free of Eliquis to allow time for prior authorization if needed by his insurance Continue telemetry? Yes
[2017-11-09] MEDS ORDERED: FINASTERIDE5 M1 PO ×2 (09:32→11:39)
--- NOTE | 2017-11-09 09:38 | Patient Discharge Instructions ---
Discharge Instructions General Discharge Information You were seen/treated for: BPH Atrial Fibrillaton You had these procedures: Prostate Urolift Watch for these problems: Increased bleeding, pain, discharge from site of surgery, fever, chills, palpitations, chest pain, shortness of breath, swelling in legs Special Instructions: 1. Please follow up with your pcp within 1 week of discharge 2. Please follow up with Dr. Riojas within 1 week of discharge 3. Please follow up with Dr. Kaur within 1 week of discharge 4. Please follow instructions as directed per Dr. Kaur 5. Please start taking Eliquis 5mg twice a day on Sunday, 11/12 after you see your urologist. 6. Please take your antibiotic (ciprofloxacin 500mg daily) as prescribed. 6. If you have any worsening symptoms as described above please call your physician or come to the ED. Diet Continue normal diet: Yes Activity Full Activity/No Limits: No Activity Self Limited: Yes Acute Coronary Syndrome Inclusion Criteria At DC or during hospital stay patient has or had the following: ACS DIAGNOSIS No Discharge Core Measures Meds if any: Prescribed or Continued at Discharge Meds if any: NOT Prescribed or Continued at Discharge Congestive Heart Failure Inclusion Criteria At DC or during hospital stay patient has or had the following: CHF DIAGNOSIS No Discharge Core Measures Meds if any: Prescribed or Continued at Discharge Meds if any: NOT Prescribed or Continued at Discharge Cerebrovascular accident Inclusion Criteria At DC or during hospital stay patient has or had the following: CVA/TIA Diagnosis No Discharge Core Measures Meds if any: Prescribed or Continued at Discharge Meds if any: NOT Prescribed or Continued at Discharge Venous thromboembolism Inclusion Criteria VTE Diagnosis No VTE Type NONE VTE Confirmed by (Test) NONE Discharge Core Measures - Per Current guidelines, there needs to be overlap - treatment for the first 5 days of Warfarin therapy. - If discharged on Warfarin prior to 5 days of - overlap therapy, the patient will need to be - assessed for post discharge needs including - *Post discharge parental anticoagulation - *Warfarin and/or parental anticoagulation education - *Follow up date to check INR post discharge At least 5 days overlap therapy as Inpatient No Meds if any: Prescribed or Continued at Discharge Note: Overlap Therapy is Warfarin and Anticoagulant Meds if any: NOT Prescribed or Continued at Discharge
[2017-11-09] MEDS ORDERED: ELIQUIS5 M1 PO ×3 (09:40→11:39)
[2017-11-09] MEDS ORDERED: CIPRO500 M1 PO ×2 (11:15→11:39)
--- NOTE | 2017-11-09 19:10 | Discharge Summary ---
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 for a uro-lift procedure. During the procedure patient was noted to have atrial fibrillation. 1. New onset atrial fibrillation EKG showed atrial fibrillation with ventricular rate of 102 and right bundle branch block Patient was admitted to the telemetry floor and placed on IV heparin and his verapamil 240 mg (home medication for hypertension) was resumed for rate control. After being transferred patient spontaneously converted back into normal sinus rhythm and has remained in normal sinus rhythm overnight. Patient's troponins remained negative. ECHO showed normal left ventricular ejection fraction estimated at 60-65%. * Anticoagulation held due to gross hematuria. Patient given a script for Eliquis 5mg BID to be started after he is seen by Dr. Kaur on 11/12/2017. * Patient should follow up with cardiology upon discharge 2. BPH status post cystoscopy and uro-lift procedure on 11/08/2017 Patient has a Mcgee in place which is currently draining gross hematuria. H&H has been stable. Patient seen by Dr. Kaur and anticoagulation was discontinued. Flomax given today for increased bladder spasms. * Continue Finasteride daily * Patient can continue Flomax per urology * Patient started on antibiotics, ciprofloxacin 500 mg daily for 10 days * Patient is to follow-up with Dr. Kaur on 11/12/[address] Allergies: Coded Allergies: No Known Allergies (11/06/17) Significant Procedures: Operative/Inv Procedure Report Surgery Date: 11/08/17 Name of Procedure: Cystoscopy. UROLIFT implant placement (X6) Pre-Operative Diagnosis: BPH. Urinary retention. Post-Operative Diagnosis: Same Estimated Blood Loss: scant Surgeon/Radio Interference Investigator: Andrew Kaur MD Anesthesia: laryngeal mask airway Drains: 20 Croatian Mcgee catheter. Specimens: None Complications: None Operative/Procedure Note Note: The patient was taken to the operating room and placed on the OR table in supine position. Timeout was performed, with the patient awake, in order to confirm correct identity, procedure, antibiotics, anesthesia, and other pertinent perioperative information. After adequate anesthesia and antibiotics, the patient was then placed lithotomy stirrups, draped and prepped in the usual surgical fashion, after removing the indwelling Mcgee catheter. A 20 Croatian cystoscope was inserted into the bladder without significant difficulty, noting the bilateral obstructing lobes of the prostate, with small middle lobe. The cystoscope bridge was replaced with ureter left the U device. The first treatment site was the patient's left side approximately 1.5 cm distal to the bladder neck. The distal tip of the delivery device was then angled laterally, approximately 20 at this position to compress the lateral lobe. The trigger was pulled, thereby deploying a needle containing the implant through the prostate. The needle was then retracted, allowing one end of the implant to be delivered to the capsule surface of the prostate. The implant was then tensioned to assure capsular sealing and removal of slack monofilament. The device was then angled back toward midline and slowly advanced proximally until cystoscopic verification of the monofilament being centered in the delivery bay. The urethral end piece was then affixed to the monofilament, thereby tailoring the size of the implant. Excess filament was then severed. The delivery device was then readvanced into the bladder. The delivery device was then replaced with cystoscope, and bridge, and implant location and opening effect was confirmed cystoscopically. The same procedure was then repeated on the right side, just distal to the right bladder neck. And 2 additional implants were delivered just proximal to the vera montanum, again one on the right, and one in the left side of the prostate following the similar technique. Cystoscopy then revealed a persistent area of obstruction, and 2 more implants were delivered in the mid prostate;(one on the right lateral lobe, and 1 on the left lateral robe) . A total of 6 implants were placed in the patient's prostate in order to perform an open prostate channel. A final cystoscopy was conducted to inspect the location, and stability of each implant, and second to confirm the presence of a continuous anterior channel present through the prostatic urethra with irrigation flow turned off. The bladder was then filled with 150 mL of irrigation fluid, and the cystoscope was removed. A 20 Croatian Mcgee was inserted without difficulty, draining clear fluid. patient tolerated procedure well All sponge needle and instrument count were correct at the end of the case. The patient tolerated the procedure well, and taken to the recovery room in satisfactory condition. Findings: Patient with intraoperative rapid atrial fibrillation. EKG obtained in the recovery room, and cardiology contacted for evaluation. Discharge Disposition: PACU Additional Comments: Patient to remain on antibiotics, pain medication, and anticoagulation as per cardiology. Pertinent Lab Results: SERVICE DATE: 11/08/17- EXAM TYPE: CARD - ECHOCARDIOGRAM DERIK TELLO Age: 66 : 1950 Gender: M Exam Date: 11/08/2017 16:45 Exam Location: [address] [place] [address] Ht (in): 68 Wt (lb): 192 BSA: 2.07 BP: 129 / 79 Ordering Physician: Trung Lunsford MD Referring Physician: Juanpablo Wright MD Technologist: Zoie Oliva RDCS Room Number: 187 Indications: AFIB/FLUTTER Rhythm: Sinus Technical Quality: Fair FINDINGS Left Ventricle Normal size left ventricle. No obvious regional wall motion abnormalities. Normal left ventricular ejection fraction estimated at 60-65%. Right Ventricle Normal right ventricular size and function. Right Atrium Normal right atrial size. Left Atrium Mild left atrial dilatation. Mitral Valve Mitral valve thickened. Trace mitral regurgitation. Aortic Valve Trileaflet aortic valve. Focal thickening of the aortic valve cusps. No aortic stenosis. No aortic regurgitation. Tricuspid Valve Tricuspid valve not well visualized, grossly normal. Trace tricuspid regurgitation. Right ventricular systolic pressure estimated at 24 mmHg. Pulmonic Valve Structurally normal pulmonic valve. Trace pulmonic regurgitation. Pericardium No pericardial effusion. Great Vessels Normal size aortic root and proximal ascending aorta. CONCLUSIONS 1. minimal to mild aortic sclerosis is present. The valve is trileaflet. There is no valvular stenosis or insufficiency. 2. Mitral leaflet thickening is present with minimal mitral insufficiency and mild left atrial enlargement. 3. There is no significant pericardial fluid present. 4. The left ventricular chamber size and systolic function are normal with no resting wall motion abnormalities. 5. Minimal tricuspid and pulmonic insufficiency are present. There is no evidence of pulmonary hypertension. 6. No prior study was available for comparison. Juanpablo Wright M.D. (Electronically Signed) Final Date: 09 November 2017 07:37 MEASUREMENTS (Male / Female) Normal Values 2D ECHO LV Diastolic Diameter PLAX 4.8 cm 4.2 - 5.9 / 3.9 - 5.3 cm LV Systolic Diameter PLAX 3.1 cm 2.1 - 4.0 cm LV Fractional Shortening PLAX 35.4 % 25 - 46 % LV Ejection Fraction 2D Teich 64.7 % IVS Diastolic Thickness 1.0 cm LVPW Diastolic Thickness 1.1 cm LV Relative Wall Thickness 0.4 RV Internal Dim ED PLAX 2.7 cm 1.9 - 3.8 cm LVOT Diameter 2.3 cm Aortic Root Diameter 3.4 cm LA Systolic Diameter LX 4.3 cm 3.0 - 4.0 / 2.7 - 3.8 cm LA Volume 46.0 cm 18 - 58 / 22 - 52 cm Ascending Aorta Diameter 3.2 cm DOPPLER AV Peak Velocity 119.0 cm/s AV Peak Gradient 5.7 mmHg AV Mean Velocity 87.5 cm/s AV Mean Gradient 3.0 mmHg AV Velocity Time Integral 28.6 cm LVOT Peak Velocity 102.0 cm/s LVOT Peak Gradient 4.2 mmHg LVOT Mean Velocity 67.0 cm/s LVOT Mean Gradient 2.0 mmHg LVOT Velocity Time Integral 21.0 cm LVOT Stroke Volume 87.2 cm AV Area Cont Eq vti 3.1 cm AV Area Cont Eq pk 3.6 cm MV Peak Velocity 81.3 cm/s MV Peak Gradient 2.6 mmHg MV Mean Velocity 47.2 cm/s MV Mean Gradient 1.0 mmHg Mitral E Point Velocity 47.9 cm/s Mitral A Point Velocity 48.4 cm/s Mitral E to A Ratio 1.0 MV PHT Velocity 65.2 cm/s MV Deceleration [place] 155.0 cm/s MV Pressure Half Time 126.2 ms MV Area PHT 1.7 cm MV Deceleration Time 370.0 ms TR Peak Velocity 215.0 cm/s TR Peak Gradient 18.5 mmHg Right Atrial Pressure 5.0 mmHg Pulmonary Artery Systolic Pressu 23.5 mmHg Right Ventricular Systolic Press 23.5 mmHg PV Peak Velocity 130.0 cm/s PV Peak Gradient 6.8 mmHg PV Mean Velocity 78.1 cm/s PV Mean Gradient 3.0 mmHg PV Velocity Time Integral 25.4 cm LV E' Lateral Velocity 10.3 cm/s Mitral E to LV E' Lateral Ratio 4.7 LV E' Septal Velocity 6.9 cm/s Mitral E to LV E' Septal Ratio 6.9 Disposition Summary Disposition Principal Diagnosis: New onset atrial fibrillation Additional Diagnosis: BPH status post cystoscopy and uro-lift procedure Discharge Disposition: home or self care Discharge Instructions General Discharge Information Code Status: Full Code Patient's Diet: Regular diet Patient's Activity: Self-Limited Follow-Up Instructions/Appts: 1. Please follow up with your pcp within 1 week of discharge 2. Please follow up with Dr. Riojas within 1 week of discharge 3. Please follow up with Dr. Kaur within 1 week of discharge 4. Please follow instructions as directed per Dr. Kaur 5. Please start taking Eliquis 5mg twice a day on Sunday, 11/12 after you see your urologist. 6. Please take your antibiotic (ciprofloxacin 500mg daily) as prescribed. 6. If you have any worsening symptoms as described above please call your physician or come to the ED. Medications at Discharge Discharge Medications: Stop taking the following medications: Saw [place] Fruit (Saw Guernsey) 450 MG CAPSULE ORAL THREE TIMES DAILY Sulfamethoxazole/Trimethoprim (Bactrim Ds Tablet) 800 MG-160 MG TABLET ORAL TWICE DAILY Qty = 14 Continue taking these medications: Tamsulosin HCl (Flomax) 0.4 MG CAP.ER.24H 1 Capsule ORAL DAILY Verapamil HCl (Verapamil ER) 240 MG CAP24H.PEL 1 Capsule ORAL DAILY Gluc 2KCL/Chondr/Barb Hy/Hy AC (Glucosamine & Chondroitin Cap) (Unknown Strength ) CAPSULE 1 Capsule ORAL DAILY [RHODIOLA] 2 Capsule ORAL Every Morning Start taking the following new medications: Ciprofloxacin HCl (Cipro) 500 MG TABLET 1 Tablet ORAL GIVE ONCE Qty = 9 No Refills Instructions: Please take 1 tab daily Comments: Last Taken: 11/09/17 Apixaban (Eliquis) 5 MG TABLET 1 Tablet ORAL TWICE DAILY Qty = 60 No Refills Instructions: Please do not start until after you see your urologist on 11/12 and he confirms that it is okay to start. Comments: NOT GIVEN IN HOSPITAL Finasteride (Finasteride) 5 MG TABLET 1 Tablet ORAL DAILY Qty = 30 No Refills Instructions: Please take 1 tab daily. Comments: Last Taken: 11/09/17 Time: 5816 Copies To: Brandy TAVAREZ,Derik Taylor
== END 2017-11-09 12:42 | DRG 310 ==
LOC: STS 04:38 → PACUH 09:51 → 1NO 09:51 → ENRESERV 10:30 → ENTRNSPT 11:00 → EDTRNSPT 11:22 → EDTRNSPTTM 11:22 → EDTRNSPTSTS 11:22 → CMPTRNSPT 11:31 → 1NO 11:32 → ENTRNSPT 11-09 12:28 → EDTRNSPT 11-09 12:39 → EDTRNSPTSTS 11-09 12:39 → 1NO 11-09 12:42 → CMPTRNSPT 11-09 12:53
PROVIDERS: Internal Medicine Hematology & Oncology; Specialist; Student in an Organized Health Care Education/Training Program; Urology
PROC: 0T7D8DZ Dilation of Urethra with Intraluminal Device, Via Natural or Artificial Opening Endoscopic (ICD-10-PCS; principal; 2017-11-08)
DX: I48.0 Paroxysmal atrial fibrillation (principal); I10 Essential (primary) hypertension; N40.1 Benign prostatic hyperplasia with lower urinary tract symptoms; R33.8 Other retention of urine; I47.1 Supraventricular tachycardia; R31.0 Gross hematuria; I45.10 Unspecified right bundle-branch block
CPT/HCPCS: 1NP; 36415; 82436; 93005; 93010; 93306; C9399; J0131; J1644; J7060; L8699